=== PATIENT | male | born 1970 | race Caucasian/White ===

== ENCOUNTER 2017-09-22 12:43 | Emergency (ER) | payer BC ==
--- NOTE | 2017-09-22 13:00 | EDPHY ---
H & P Time Seen by Provider: 09/22/17 12:55 HPI/ROS: CHIEF COMPLAINT: Nausea, shakiness HISTORY OF PRESENT ILLNESS: This patient is a 47 y/o male with history of hypertension complaining of shakiness and nausea. He flew to [place] from [place] this morning, and had very little sleep prior to his flight. He has not eaten since lunch yesterday as he was busy preparing for his trip. Two hours ago, he began feeling very shaky. He ate some food and initially felt mildly better, but developed a sensation of nausea. His symptoms returned with more shakiness and more pronounced nausea. He endorses associated anxiety and feels dehydrated. He drank 2 large bottles of Gatorade prior to arrival. He denies diarrhea or vomiting. He took his Lisinopril this morning as usual. No history of clotting disorders. No fever, chest pain, shortness of breath, or other associated symptoms. REVIEW OF SYSTEMS: A 10 point review of systems was performed and is negative with the exception of the elements mentioned in the history of present illness. Past Medical/Surgical History: Hypertension (Lisinopril) Family history positive for diabetes mellitus and prostate cancer in father. Social History: Nonsmoker. No alcohol use. . at bedside. No illicit drug use. Smoking Status: Never smoked Physical Exam: General Appearance: Alert, appears anxious, tremulous Eyes: Pupils equal and round, no conjunctival pallor or injection ENT, Mouth: Mucous membranes moist Neck: Normal inspection Respiratory: Lungs are clear to auscultation Cardiovascular: Regular tachycardia Gastrointestinal: Abdomen is soft and non-tender Neurological: Alert, oriented x3, cranial nerves II through XII intact, motor 5 /5, sensory intact to light touch Skin: Warm and dry Extremities: Nontender, no pedal edema Psychiatric: Anxious Constitutional: Initial Vital Signs Temperature (C) 36.7 C 09/22/17 12:50 Heart Rate 124 H 09/22/17 12:50 Respiratory Rate 18 09/22/17 12:50 Blood Pressure 174/108 H 09/22/17 12:50 O2 Sat (%) 94 09/22/17 12:50 O2 Delivery Mode Room Air O2 (L/minute) 2 Allergies/Adverse Reactions: No Known Allergies Allergy (Unverified 09/22/17 12:50) Home Medications: Medication Instructions Recorded Lisinopril [PRINIVIL] 10 mg PO DAILY #30 tablet 09/22/17 Medical Decision Making - Diagnostics EKG Interpretation: EKG interpreted by me reveals sinus tachycardia, rate 119, no ST/T changes. Interpretation: sinus tachycardia. ED Course/Re-evaluation: 47 y/o male presents with shakiness and nausea onset this morning. He is tremulous and anxious appearing on exam. Plan for EKG, labs including CBC, chemistries. EKG shows sinus tachycardia, no evidence of ischemia. IV normal saline 1 L and Ativan 0.5 mg IV given. BGL elevated at 243. No prior history of diabetes. This may be secondary to Gatorade just prior to arrival. Hemoglobin A1c ordered. Dietary instructions given. He will follow up with primary care physician for consideration of treatment for diabetes. 2:30 p.m.-feels much better after now after IV fluids, a nap and Ativan 0.5 mg IV. Nausea has resolved and he is no longer shaking. Sx most likely secondary to decreased sleep and poor oral intake over the past 24 hours. No evidence of serious etiology of sx; specifically, no evidence of DKA, ACS, CVA/TIA, hypoglycemia, hyponatremia, infection. Will restart rx of HTN with Lisinopril 10mg daily. He was previously on Lisinopril and tolerated it well. Lisinopril 10 mg orally given in the emergency department. Hemoglobin A1c is normal; hyperglycemia likely secondary to glucose intolerance and large glucose load just [employer]. Will f/u PCP. Differential Diagnosis: Altered mental status including but not limited to hypoglycemia, infectious process, electrolyte abnormality, head injury and intoxicants. - Data Points Laboratory Results: Laboratory Results 09/22/17 12:00 09/22/17 12:00 Medications Given: Discontinued Medications Sodium Chloride (Ns) 1,000 mls @ 0 mls/hr IV ONCE ONE; Wide Open PRN Reason: Protocol Stop: 09/22/17 14:43 Last Admin: 09/22/17 15:00 Dose: 1,000 mls Lisinopril (Zestril) 10 mg PO EDNOW ONE Stop: 09/22/17 15:04 Last Admin: 09/22/17 15:08 Dose: 10 mg Lorazepam (Ativan Injection) 0.5 mg IVP EDNOW ONE Stop: 09/22/17 13:07 Last Admin: 09/22/17 13:14 Dose: 0.5 mg Departure - Departure Disposition: Home, Routine, Self-Care Clinical Impression: Hyperglycemia Hypertension Qualifiers: Hypertension type: essential hypertension Qualified Code(s): I10 - Essential ( primary) hypertension Condition: Good Instructions: Lisinopril (By mouth), Nondiabetic Hyperglycemia (ED) Additional Instructions: 1. Buy a glucometer. Check and record your blood sugar twice daily. 2. Avoid simple sugars. 3. Follow up with your primary care provider when you return home regarding your high blood sugar. 4. Take Lisinopril as prescribed. 4. Return to the emergency department for fever, uncontrollable vomiting, chest pain, shortness of breath, fainting, or other worsening of condition. Referrals: [facility] [Other] - As per Instructions Prescriptions: Lisinopril [PRINIVIL] 10 mg PO DAILY #30 tablet Report Scribed for: Alice Barraza Report Scribed by: Sharlene Khan Date of Report: 09/22/17 Time of Report: 13:00 Physician Review and Approval Statement: 09/22/17 13:00 Portions of this note were transcribed by a medical practice manager. I personally performed a history, physical exam, medical decision making, and confirmed accuracy of information the transcribed note.
--- NOTE | 2017-09-22 13:03 | CPEKG ---
Heart Rate: 119 RR Interval: 504 P-R Interval: 160 QRSD Interval: 80 QT Interval: 308 QTC Interval: 434 P [place]: 15 QRS [place]: 17 T Wave [place]: 22 EKG Severity - OTHERWISE NORMAL ECG - EKG Impression: SINUS TACHYCARDIA Electronically Signed By: Alice Barraza 22-Sep-2017 14:52:59
[2017-09-22] MEDS ORDERED: LORazepam 2 MG/ML INJ IVP ONE (13:06)
[2017-09-22 13:09] LABS: PLATELET COUNT 185 10^3/uL (150-400)
[2017-09-22 14:07] VITALS: PULSE 110; RESP 16
[2017-09-22] MEDS ORDERED: NS 1,000 ML IV ONE (14:42)
[2017-09-22] MEDS ORDERED: LISINOPRIL 20 MG TAB PO ONE (15:03)
[2017-09-22 15:05] VITALS: BP 155/100; TEMP 99; O2SAT 95
== END 2017-09-22 15:43 | disposition home or self-care (01) ==
DX: R73.9 Hyperglycemia, unspecified (principal); I10 Essential (primary) hypertension; E86.9 Volume depletion, unspecified
CPT/HCPCS: 82947-QW; 96374; J2060